=== PATIENT | male | born 1945 | race Caucasian/White ===

== ENCOUNTER 2019-03-01 08:11 | Day surgery (SDC) ==
[2015-11-29 12:20] VITALS: BMI 22.4
[2019-03-01 10:10] VITALS: TEMP 98.5
[2019-03-01] MEDS ORDERED: DIPRIVAN 20 ML VIAL IVP ONE (10:55)
[2019-03-01] MEDS ORDERED: VERSED ONE (10:55)
[2019-03-01 11:39] VITALS: BP 119/70
--- NOTE | 2019-03-02 11:36 | OP ---
INDICATIONS FOR PROCEDURE: 74 year old gentleman presents for colonoscopy exam. He has a remote history of adenomatous polyps with his last colonoscopy 5 years ago being unremarkable. MEDICATIONS: SEE ANESTHESIA NOTES. PROCEDURE: COLONOSCOPY. SNARE POLYPECTOMY. REPORT: The risks, benefits, alternatives and limitations were discussed in detail with the patient. Informed consent was obtained. After adequate sedation was achieved, a digital rectal exam revealed good tone, no masses. The colonoscope was introduced into the rectum and advanced under direct visual guidance to the cecum. The cecum was identified by the appendiceal orifice and IC valve. I then slowly withdrew the scope in circumferential manner and examined the mucosa quite carefully. I looked on the proximal and distal sides of folds and flexures as best as possible. I was able to retroflex the scope in the right colon as well as the left colon to increase visualization. In the Proximal transverse colon there was a diminutive polyp about 3mm in size that I destroyed using the snare. In the middistal transverse colon there was two polyps about 5mm in size slightly raised. Both of these were removed by snare technique. These were retrieved. No other abnormalities noted including on retroflex view of the anal canal. The prep was good. The withdraw time was 12 minutes and 35 seconds. The patient tolerated the procedure well with stable vital signs and pulse oximetry throughout. IMPRESSION: 1. Three polyps removed or destroyed as above RECOMMENDATIONS: 1. High fiber diet 2. Office visit as needed 3. Await pathology results and if everything is benign as expected I suggest a surveillance colonoscopy examination again in 3 years. Sooner if there are signs or symptoms to indicate otherwise. CC: Dr. Abdifatah BOSE
== END 2019-03-01 12:10 | disposition home or self-care (01) ==
LOC: SURG 08:11
PROVIDERS: ATTEND Internal Medicine Gastroenterology
DX: Z86.010 Personal history of colon polyps (principal); D12.3 Benign neoplasm of transverse colon

== ENCOUNTER 2025-03-21 10:47 | Inpatient (IN) ==
[2025-03-21 11:37] LABS: IMMATURE GRANULOCYTE # (AUTO) 0.0 (0.0-1.0); IMMATURE GRANULOCYTE % (AUTO) 0.4 % (0.0-5.0); RDW COEFFICIENT OF VARIATION 16.0 % (11.6-14.8)
[2025-03-21] MEDS: SOLU-MEDROL 125 MG IVP ONE (11:38)
[2025-03-21] MEDS: DUONEB NEB ONE (11:43)
--- NOTE | 2025-03-21 11:47 | DI ---
EXAM: FRONTAL CHEST HISTORY: Shortness of breath IMPRESSION: Compared to 05/18/2023. Cardiomegaly, sternotomy wires and atherosclerotic disease are again noted and stable. Redemonstration of a small right pleural effusion. Probable trace left pleural effusion. Additional density in the bases may represent atelectasis. Cannot exclude pneumonia, correlate cli nically. No pneumothorax or acute bony finding.
[2025-03-21 11:49] LABS: CREATININE 1.04 mg/dL (0.60-1.10)
[2025-03-21 12:13] LABS: ERYTHROCYTE SEDIMENTATION RATE 5 mm/hr (0-15)
[2025-03-21] MEDS: OMNIPAQUE 350 MG/ML 100ML IVP ONE (12:13)
--- NOTE | 2025-03-21 12:54 | CT ---
EXAM: CT OF THE ABDOMEN AND PELVIS WITH CONTRAST COMPARISON: HISTORY: Shortness of breath. TECHNIQUE: Axial CT images were obtained through the abdomen and pelvis with the administration of intravenous contrast. Coronal and sagittal reformatted images were also submitted for interpretation. FINDINGS: Liver: Hepatic steatosis. Correlation with LFTs recommended. Gallbladder: No gallstones. Bile ducts: No intra or extrahepatic biliary ductal dilatation. Pancreas: No lesions. The main pancreatic duct is not dilated. Spleen: The spleen is not enlarged. Adrenal glands: Within normal limits. Kidneys: No hydronephrosis. No renal calculi. Moderate volume loss and decreased enhancement of the right kidney likely secondary to marked narrowing/stenosed right renal artery. Right renal cyst. Ureters: Within normal limits Urinary bladder: Within normal limits Reproductive organs: Prostate measures 4.5 cm. Peritoneum: Small/moderate amount of free fluid in the pelvis. No free air. Gastrointestinal tract: Normal caliber. Small hiatal hernia. Lymph nodes: No lymphadenopathy. Vessels: Marked atherosclerosis in the abdominal aorta. Atherosclerosis with marked narrowing in the celiac trunk, SMA and right renal artery. Marked narrowing of the bilateral superficial femoral arteries. 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 Abdominal wall: Moderate diffuse anasarca. Osseous structures: Degenerative changes. Lower thorax: Moderate/marked cardiomegaly. Moderate bilateral pleural effusions with adjacent atelectasis and/or pneumonia. Sternotomy wires. IMPRESSION: - Moderate volume loss and decreased enhancement of the right kidney likely secondary to marked narrowing/stenosed right renal artery. - Moderate/marked cardiomegaly. Moderate bilateral pleural effusions with adjacent atelectasis and/or pneumonia. Sternotomy wires. - Hepatic steatosis. Correlation with LFTs recommended. - Small/moderate amount of free fluid in the pelvis. No free air. - Extensive atherosclerosis of the aorta and branch vessels. 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 All CT scans are performed using dose optimization techniques as appropriate to the performed exam and include at least one of the following: Automated exposure control, adjustment of the mA and/or kV according to size, and the use of iterative reconstruction technique.
--- NOTE | 2025-03-21 13:07 | ED.PDOC ---
General [facility] ED Provider: Dr. TENISHA PAN MD Chief Complaint: Shortness of Air Stated Complaint: 80-year-old male with history of COPD and congestive heart failure states that over the last week he has felt acute onset of increasing dyspnea which is worse with exertion and has been constant and was moderate in severity until this morning when he felt it was more severe and contacted his daughter to bring him to the emergency department. Daughter states he did appear to be in significant respiratory distress when she initially saw him. He is on 3 L of oxygen at home chronically for his COPD and CHF. He also complains of generalized weakness over the same amount of time and states that it is more difficult to get up out of a chair and he does not feel like he has his normal strength in his arms and his legs that he would normally have. No fever sore throat ear pain chest pain abdominal pain hemoptysis. He has an occasional cough chronically which is unchanged. He states that at times he does feel some dysuria intermittently over the last week. No hematuria. No change in vision or speech. Symptoms have been constant to the present time and worsening with no alleviating factors. He is on Eliquis. He does drink alcohol approximately 2-4 beers a day no drug use. Time Seen by Provider: 03/21/25 10:50 Information Source: Patient Primary Care Provider: SANDY FLORES Nursing and Triage Documentation Reviewed and Agree: Yes Opioid Naive vs. Tolerant Does Patient Take Opioids?: No Is Patient Opioid Naive?: No What is Opioid Naive?: *Opioid Naive implies the patient is not already taking opioids or not chronically receiving opioids on a daily basis. *PRN dosing is not "usually" associated with tolerance. *Patients are at higher risk of over-sedation and aspiration. Is Patient Opioid Tolerant?: No What is Opioid Tolerant?: *Opioid Tolerance implies less than the expected response to an opioid. *Acquired tolerance is defined by the patient taking 60mg of oral morphine daily (or equianalgesic dose of another opioid) for 1 week or more. *Often associated with chronic pain. *May take more than usual dose to achieve desired pain control. Review of Systems Review Of Systems Constitutional: Reports Other (No fever or chills) Ears, Nose, Mouth, Throat: Reports Other (No headache or neck pain) Respiratory: Reports Other (As above) Cardiac: Reports Other (No chest pain palpitations or syncope) GI: Reports Other (No abdominal pain vomiting or melena) : Reports Other (Positive dysuria, no hematuria) Musculoskeletal: Reports Other (No back pain or extremity pain) Neurological: Reports Other (No focal weakness. He feels generally weak in all extremities. No change in vision or speech or confusion.) [facility] Medical History COPD (chronic obstructive pulmonary disease) J44.9 - Chronic obstructive pulmonary disease, unspecified (ICD-10) Hypertension I10 - Essential (primary) hypertension (ICD-10) CHF (congestive heart failure) I50.9 - Heart failure, unspecified (ICD-10) Surgical History H/O heart surgery Z98.890 - Other specified postprocedural states (ICD-10) Physical Exam Physical Exam Appearance: Reports Other (Alert, pleasant elderly male complaining of shortness of breath and generalized weakness, vital signs reviewed) ENT: Reports Ears normal, Nose normal and Oropharynx normal Neck: Supple (Trachea midline, no JVD) Respiratory: Reports Airway patent and Other (Diminished air entry bilaterally, occasional scattered wheeze, no rhonchi, no accessory muscle use ) Cardiovascular: Reports RRR and No murmur GI/: Reports Other (I palpate what I believed to be an enlarged liver in his right upper to mid abdomen which is mildly tender to palpation, remainder of the abdomen is soft and without any other palpable masses and nontender, no hernia) Musculoskeletal: Reports Other (No tenderness to the thoracic or lumbar spine or tenderness swelling deformity to the arms or legs) Neurological: Reports Other (Alert, answering questions appropriately, face is symmetric, equal strength and sensation of all extremities. He is symmetrically weak at the shoulders. He states he has some pain at the shoulders chronically and chronic weakness due to the pain) Interpretation EKG Interpretation EKG Interpretation By: ED Physician Time of EKG #1: 11:26 Rate: Normal Rhythm: Sinus Ectopy: None Welch: Left ST Segment: Other (J-point elevation inferiorly and anteriorly and ST depression laterally with T wave inversions consistent with repolarization abnormality from left bundle branch block pattern and left ventricular hypertrophy.) Interpretation: Normal sinus rhythm with left axis deviation left bundle branch block Radiology Interpretation Radiology Interpretation By: Radiologist Exam Interpreted: CXR (Chest x-ray shows small right pleural effusion similar to previous chest x-ray, lower lung density which has also previously been seen, no edema or pneumothorax) Radiology Interpretation By: Radiologist Exam Interpreted: CT Scan (CT scan of the abdomen/pelvis:IMPRESSION: - Moderate volume loss and decreased enhancement of the right kidney likely secondary to marked narrowing/stenosed right renal artery. - Moderate/marked cardiomegaly. Moderate bilateral pleural effusions with adjacent atelectasis and/or pneumonia. Sternotom) Physician Progress Note Physician Progress Note: Pulse oximetry reading is 97% on 3 L nasal cannula which is what the patient is on at home. He has normal oxygenation on his normal 3 L nasal cannula. monitoring and evaluation advisor shows normal sinus rhythm EKG shows normal sinus rhythm with left axis deviation left bundle branch block pattern left ventricular hypertrophy, left axis deviation, J-point elevation anteriorly and inferiorly and ST depression in laterally and T wave inversion laterally consistent with repolarization abnormality, impression: Normal sinus rhythm with left axis deviation left bundle branch block and repolarization abnormality, personnel monitor and EKG were interpreted by me Radiology studies: I reviewed the radiologist interpretation, CAT scan of the abdomen/pelvis: MPRESSION: - Moderate volume loss and decreased enhancement of the right kidney likely secondary to marked narrowing/stenosed right renal artery. - Moderate/marked cardiomegaly. Moderate bilateral pleural effusions with adjacent atelectasis and/or pneumonia. Sternotomy wires. - Hepatic steatosis. Correlation with LFTs recommended. - Small/moderate amount of free fluid in the pelvis. No free air. - Extensive atherosclerosis of the aorta and branch vessels. 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 Chest x-ray: IMPRESSION: Compared to 05/18/2023. Cardiomegaly, sternotomy wires and atherosclerotic disease are again noted and stable. Redemonstration of a small right pleural effusion. Probable trace left pleural effusion. Additional density in the bases may represent atelectasis. Cannot exclude pneumonia, correlate clinically. No pneumothorax or acute bony finding. Lab workup CBC is normal except for hemoglobin of 11.9 and platelet count of 119,000 CMP is normal except for sodium of 131 glucose of 116 and chloride of 94 proBNP significantly elevated at 14,000 D-dimer elevated at 2121 Troponin negative lipase normal Reexamination at 2 PM. Patient states that he is feeling improved from earlier but still has some wheezing on exam and mild tachypnea at rest. Patient also needs to get a CTA of his chest for PE but unfortunately already did receive 1 IV contrast load. I spoke with the nurse practitioner hospitalist and we discussed keeping the patient in observation until tomorrow. I did give the patient 40 mg of IV Lasix for congestive heart failure and he will be kept in observation for more breathing treatments and steroids and diuretics and will undergo CTA of his chest tomorrow to exclude the possibility of PE. He is already on Eliquis and did take a dose this morning prior to coming to the hospital as well as all of his other morning medications Course Course 03/21/25 11:10 03/21/25 11:10 Orders, Labs, Meds: Lab Review 03/21/25 11:10 WBC 7.03 RBC 3.23 L Hgb 11.9 L Hct 36.3 L MCV 112.4 H MCH 36.8 H MCHC 32.8 RDW Coeff of Regino 16.0 H Plt Count 113 L Immature Gran % (Auto) 0.4 Neut % (Auto) 76.9 H Lymph % (Auto) 10.0 Hern[place] % (Auto) 10.7 H Eos % (Auto) 1.1 Baso % (Auto) 0.9 Neut # (Auto) 5.4 Lymph # (Auto) 0.7 [place] # (Auto) 0.8 Eos # (Auto) 0.1 Baso # (Auto) 0.1 Immature Gran # (Auto) 0.0 ESR 5 Sodium 131.0 L Potassium 4.25 Chloride 93.7 L Carbon Dioxide 26.4 Anion Gap 15.15 BUN 17.5 Creatinine 1.04 Estimated GFR (MDRD) 68.00 BUN/Creatinine Ratio 16.82 Glucose 115.9 H Calcium 8.50 Total Bilirubin 1.18 AST 28.3 ALT 13.7 Alkaline Phosphatase 80.1 Troponin I 0.017 NT-Pro-B Natriuret Pep 71530 H Total Protein 6.77 Albumin 4.06 Globulin 2.71 Albumin/Globulin Ratio 1.49 Lipase 32.4 D-Dimer 2121.64 H Orders Category Date Time Status EKG-(ED ONLY) Stat CARDIO 03/21/25 11:21 Completed CONTINUOUS PULSE OX (NURSING) PULSEOX CARE 03/21/25 11:21 Active NPO REMINDER: IMAGING ONCE CARE 03/21/25 11:25 Completed ED MANUAL CONTROL AUGER PRESS OPERATOR APPLIED .ONCE EMERGENCY 03/21/25 11:22 Active CBC W/ AUTO DIFF Stat LAB 03/21/25 11:10 Completed COMPREHENSIVE METABOLIC PANEL Stat LAB 03/21/25 11:10 Completed D-DIMER Stat LAB 03/21/25 11:10 Completed ESR Stat LAB 03/21/25 11:10 Completed LIPASE Stat LAB 03/21/25 11:10 Completed NT-PROBNP(ED) Stat LAB 03/21/25 11:10 Completed TROPONIN I Stat LAB 03/21/25 11:10 Completed URINALYSIS C & S IF INDICATED Stat LAB 03/21/25 11:21 Uncollected Furosemide [Lasix] Meds 03/21/25 13:20 Stat 40 mg IVP ONCE STA Iohexol [Omnipaque 350 mg/ml 100Ml] Meds 03/21/25 11:59 Discontinued 100 ml IVP ONCE ONE Ipratropium/Albuterol Neb [Duoneb] Meds 03/21/25 11:21 Discontinued 3 ml NEB ONCE ONE Methylprednisolone Sod Succ/Pf [Solu-Medrol 125 mg] Meds 03/21/25 11:21 Discontinued 125 mg IVP ONCE ONE CHEST, 1V AP ONLY Stat RADS 03/21/25 11:[address] ABDOMEN/PELVIS W CONTRAST Stat RADS 03/21/25 11:25 Completed Medications Generic Name Dose Route Start Last Admin Trade Name Freq PRN Reason Stop Dose Admin Furosemide 40 mg 03/21/25 13:20 Furosemide Inj 40 Mg/4 Ml Vial IVP 03/21/25 13:21 ONCE STA Discontinued Medications Generic Name Dose Route Start Last Admin Trade Name Freq PRN Reason Stop Dose Admin Albuterol/Ipratropium 3 ml 03/21/25 11:21 03/21/25 11:43 Ipratropium/Albuterol Vial.Neb NEB 03/21/25 11:22 3 ml ONCE ONE Administration Iohexol 100 ml 03/21/25 11:59 03/21/25 12:13 Iohexol 350 Mg/Ml 100ml IVP 03/21/25 12:00 100 ml ONCE ONE Administration Methylprednisolone Sodium Succinate 125 mg 03/21/25 11:21 03/21/25 11:38 Methylprednisolone Sod Succ/Pf 125 Mg/2 Ml Vial IVP 03/21/25 11:22 125 mg ONCE ONE Administration Vital Signs: Temp Pulse Resp BP Pulse Ox 03/21/25 10:50 98.0 F 70 20 146/90 H 97 Discharge Plan Discharge Patient Disposition: PLACED OBSERVATION Discharge Problem: Asthma exacerbation in COPD, Congestive heart failure, Generalized weakness Did you review [place] [employer] ADMINISTRATOR for ALL controlled substances?: Not Applicable ED Provider: TENISHA PAN Condition: Good
[2025-03-21] MEDS: LASIX IVP STA (13:25)
[2025-03-21 14:03] LABS: SARS COV-2 RNA RAPID NAAT NEGATIVE (NEGATIVE)
[2025-03-21 14:33] LABS: GLUCOSE, URINE (UA) Negative (NEGATIVE); LEUKOCYTE ESTERASE ,URINE Negative (NEGATIVE); URINE, BLOOD Negative (NEGATIVE)
[2025-03-21] MEDS ORDERED: DUONEB NEB PRN (14:44)
--- NOTE | 2025-03-21 14:53 | PCM ---
Date of Service Date Seen by Provider: 03/21/25 Time Seen by Provider: 15:00 Admit Day/Time Admission Date: 03/21/25 Admission Time: 14:00 Reason for Admission Chief Complaint: COPD, CHF Hospital Provider Hospital Provider: ALIX WHITLOCK, [facility] Primary Care Physician Primary Care Physician: SANDY FLORES History of Present Illness History of Present Illness: 80 yo male with pmh of COPD on 3L, Combined HF, HTN, Afib and Aortic insufficiency presented to the ER with complaints of shortness of breath. States he has had worsening SOB over the past 3 months but even worse than normal the past week. States he is weak and feels he is swelling in his legs. Denies any fever or chills, does report body aches. Denies cough or chest pain. States he normally weighs 160 and is 169.2 today. BNP found to be 14,000. Ct abd pelv showing anasarca and pleural effusions. Upon exam, patient is using abdominal muscles to breathe and states he can't walk without getting SOB. Admitted to med/surg inpatient. Case Discussed With Case Discussed With: Patient's case was discussed with the ER Physicians, Dr. Louie [facility] Medical History COPD (chronic obstructive pulmonary disease) J44.9 - Chronic obstructive pulmonary disease, unspecified (ICD-10) Hypertension I10 - Essential (primary) hypertension (ICD-10) CHF (congestive heart failure) I50.9 - Heart failure, unspecified (ICD-10) Surgical History H/O heart surgery Z98.890 - Other specified postprocedural states (ICD-10) Family History Other No known health problems Social History Smoking and tobacco status: Former smoker Allergies Allergies Allergy/AdvReac Type Severity Reaction Status Date / Time shellfish derived AdvReac Intermediate Difficulty Verified 03/21/25 10:55 Breathing hydrocodone (From Lortab) AdvReac Vomiting Verified 03/21/25 10:55 Current Medications Home Medications Acetaminophen (Acetaminophen 325 Mg Tablet) 650 mg PO Q4H PRN PRN Reason: Mild Pain Albuterol/Ipratropium (Ipratropium/Albuterol Vial.Neb) 3 ml NEB RTQ4H PRN PRN Reason: Wheezing Folic Acid (Folic Acid 1 Mg Tablet) 1 mg PO DAILY SINDY Furosemide (Furosemide Inj 40 Mg/4 Ml Vial) 40 mg IVP Q8HR SINDY Thiamine HCl (Vitamin B-1 100 Mg Tablet) 100 mg PO DAILY SINDY metoprolol succinate 25 mg tablet,extended release 24 hr 50 mg PO BID 12/06/13 [History Confirmed 03/21/25] sildenafil 25 mg tablet (Viagra) 25 mg PO WEEKLY PRN ED 11/29/15 [History Confirmed 03/21/25] apixaban 5 mg tablet (Eliquis) 2.5 mg PO BID 07/18/22 [History Confirmed 03/21/25] memantine 10 mg tablet 10 mg PO BID 04/28/23 [History Confirmed 03/21/25] ranolazine 500 mg tablet,extended release,12 hr 1,000 mg PO BID 04/28/23 [Hist ory Confirmed 03/21/25] spironolactone 25 mg tablet 25 mg PO QAM 04/28/23 [History Confirmed 03/21/25] tamsulosin 0.4 mg capsule 0.4 mg PO DAILY 04/28/23 [History Confirmed 03/21/25] trazodone 100 mg tablet 100 mg PO BEDTIME 04/28/23 [History Confirmed 03/21/25] albuterol sulfate 90 mcg/actuation aerosol inhaler 2 inh inhalation Q8H PRN shortness of breath or wheezing 05/11/24 [History Confirmed 03/21/25] atorvastatin 80 mg tablet 80 mg PO DAILY 05/11/24 [History Confirmed 03/21/25] azelastine 137 mcg-fluticasone 50 mcg/spray nasal spray 1 spray intranasal DAILY 05/11/24 [History Confirmed 03/21/25] bacitracin-polymyxin B 500 unit-10,000 unit/gram eye ointment 1 applic BOTHEYES DAILY 05/11/24 [History Confirmed 03/21/25] empagliflozin 10 mg tablet (Jardiance) 10 mg PO DAILY 05/11/24 [History Confirmed 03/21/25] fluticasone 100 mcg-salmeterol 50 mcg/dose blistr powdr for inhalation (Advair Diskus) 1 inh inhalation BID PRN shortness of breath or wheezing 05/11/24 [History Confirmed 03/21/25] furosemide 40 mg tablet 40 mg PO DAILY PRN edema 05/11/24 [History Confirmed 03/21/25] lidocaine 5 % topical patch (Lidoderm) 1 patch topical DAILY PRN pain 05/11/24 [History Confirmed 03/21/25] pantoprazole 40 mg tablet,delayed release (Protonix) 40 mg PO DAILY 05/11/24 [History Confirmed 03/21/25] sacubitril 24 mg-valsartan 26 mg tablet (Entresto) 1 tab PO DAILY 05/11/24 [History Confirmed 03/21/25] isosorbide mononitrate 30 mg tablet,extended release 24 hr 30 mg PO QDAY 07/22/24 [History Confirmed 03/21/25] loratadine 10 mg tablet 10 mg PO QDAY 07/22/24 [History Confirmed 03/21/25] bumetanide 0.5 mg tablet 0.5 mg PO DAILY 03/05/25 [History Confirmed 03/21/25] chlorhexidine gluconate 4 % topical liquid (Hibiclens) 1 applic topical BID #236 mL 03/05/25 [Rx Confirmed 03/21/25] mirtazapine 7.5 mg tablet 7.5 mg PO BEDTIME 03/05/25 [History Confirmed 03/21/25] fluticasone propionate 50 mcg/actuation nasal spray,suspension 2 spray intranasal DAILY 03/21/25 [History Confirmed 03/21/25] testosterone 81 mg topical QAM 03/21/25 [History Confirmed 03/21/25] Opioid Naive vs. Tolerant Does Patient Take Opioids?: No Is Patient Opioid Naive?: Yes What is Opioid Naive?: *Opioid Naive implies the patient is not already taking opioids or not chronically receiving opioids on a daily basis. *PRN dosing is not "usually" associated with tolerance. *Patients are at higher risk of over-sedation and aspiration. Is Patient Opioid Tolerant?: No What is Opioid Tolerant?: *Opioid Tolerance implies less than the expected response to an opioid. *Acquired tolerance is defined by the patient taking 60mg of oral morphine daily (or equianalgesic dose of another opioid) for 1 week or more. *Often associated with chronic pain. *May take more than usual dose to achieve desired pain control. Review of Systems Constitutional: Reports No symptoms, Weakness and Other (body aches); Denies Fever Head: Reports Normocephalic and Atraumatic Eyes: Reports No symptoms Ears: Reports No symptoms Nose: Reports No symptoms Mouth: Reports No symptoms Throat: Reports No symptoms Cardiovascular: Reports No symptoms Respiratory: Reports Shortness of air; Denies Cough Gastrointestinal: Reports No symptoms Genitourinary: Reports No Symptoms Musculoskeletal: Reports No symptoms Endocrine: Reports No symptoms Hematology: Reports No symptoms Immunology: Reports No symptoms Neurological: Reports No symptoms Psychiatric: Reports No symptoms Physical examination Most Recent Vital Signs: Most Recent Vital Signs Temperature 98.0 F 03/21/25 10:50 Temperature Source Temporal Artery Scan 03/21/25 10:50 Pulse Rate 70 03/21/25 10:50 Respiratory Rate 20 03/21/25 10:50 Blood Pressure 146/90 H 03/21/25 10:50 O2 Sat by Pulse Oximetry 97 03/21/25 10:50 Height 6 ft 03/21/25 10:50 Weight 72.575 kg 03/21/25 10:50 Appearance: Positive No Apparent Distress and Alert and Oriented x3 Skin: Positive Warm and Good Color HEENT: Positive Normocephalic and PERRLA Neck: Positive Supple and Midline Trachea Chest/Lungs: Positive Symmetrical With Equal Breath Sounds and Clear to Auscultation Bilaterally (severely diminished) Heart: Positive Pulses Normal and Murmur GI/: Positive Soft, Nontender, Bowel Sounds Normal and Other (distended with fluid) Musculoskeletal: Positive Not Examined Extremities: Positive Edema (+2 bilateral lower extremities), Intact Peripheral Pulses, Stable Joints Without Laxity and Good ROM in All Joints Neurological: Positive Sensation Intact, Motor intact, Reflexes Intact, Alert, Oriented and Muscle Strength 5/5 in Upper and Lower Extremities Bilaterally Labs This Visit Labs This Visit: Labs This Visit 03/21/25 03/21/25 03/21/25 11:10 13:28 14:20 WBC 7.03 RBC 3.23 L Hgb 11.9 L Hct 36.3 L MCV 112.4 H MCH 36.8 H MCHC 32.8 RDW Coeff of Regino 16.0 H Plt Count 113 L Immature Gran % (Auto) 0.4 Neut % (Auto) 76.9 H Lymph % (Auto) 10.0 Cloud % (Auto) 10.7 H Eos % (Auto) 1.1 Baso % (Auto) 0.9 Neut # (Auto) 5.4 Lymph # (Auto) 0.7 Cloud # (Auto) 0.8 Eos # (Auto) 0.1 Baso # (Auto) 0.1 Immature Gran # (Auto) 0.0 ESR 5 Sodium 131.0 L Potassium 4.25 Chloride 93.7 L Carbon Dioxide 26.4 Anion Gap 15.15 BUN 17.5 Creatinine 1.04 Estimated GFR (MDRD) 68.00 BUN/Creatinine Ratio 16.82 Glucose 115.9 H Calcium 8.50 Total Bilirubin 1.18 AST 28.3 ALT 13.7 Alkaline Phosphatase 80.1 Troponin I 0.017 NT-Pro-B Natriuret Pep 64653 H Total Protein 6.77 Albumin 4.06 Globulin 2.71 Albumin/Globulin Ratio 1.49 Lipase 32.4 D-Dimer 2121.64 H Urine Color Yellow Urine Clarity Clear Urine pH 6.0 Ur Specific Kenner 1.010 Urine Protein Negative Urine Glucose (UA) Negative Urine Ketones Negative Urine Blood Negative Urine Nitrite Negative Urine Bilirubin Negative Urine Urobilinogen 0.2 Ur Leukocyte Esterase Negative SARS CoV-2 RNA Rapid KARAN Negative Imaging Imaging: EXAM: FRONTAL CHEST HISTORY: Shortness of breath IMPRESSION: Compared to 05/18/2023. Cardiomegaly, sternotomy wires and atherosclerotic disease are again noted and stable. Redemonstration of a small right pleural effusion. Probable trace left pleural effusion. Additional density in the bases may represent atelectasis. Cannot exclude pneumonia, correlate clinically. No pneumothorax or acute bony finding. EXAM: CT OF THE ABDOMEN AND PELVIS WITH CONTRAST FINDINGS: Liver: Hepatic steatosis. Correlation with LFTs recommended. Gallbladder: No gallstones. Bile ducts: No intra or extrahepatic biliary ductal dilatation. Pancreas: No lesions. The main pancreatic duct is not dilated. Spleen: The spleen is not enlarged. Adrenal glands: Within normal limits. Kidneys: No hydronephrosis. No renal calculi. Moderate volume loss and decreased enhancement of the right kidney likely secondary to marked narrowing/stenosed right renal artery. Right renal cyst. Ureters: Within normal limits Urinary bladder: Within normal limits Reproductive organs: Prostate measures 4.5 cm. Peritoneum: Small/moderate amount of free fluid in the pelvis. No free air. Gastrointestinal tract: Normal caliber. Small hiatal hernia. Lymph nodes: No lymphadenopathy. Vessels: Marked atherosclerosis in the abdominal aorta. Atherosclerosis with marked narrowing in the celiac trunk, SMA and right renal artery. Marked narrowing of the bilateral superficial femoral arteries. 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 Abdominal wall: Moderate diffuse anasarca. Osseous structures: Degenerative changes. Lower thorax: Moderate/marked cardiomegaly. Moderate bilateral pleural effusions with adjacent atelectasis and/or pneumonia. Sternotomy wires. IMPRESSION: - Moderate volume loss and decreased enhancement of the right kidney likely secondary to marked narrowing/stenosed right renal artery. - Moderate/marked cardiomegaly. Moderate bilateral pleural effusions with adjacent atelectasis and/or pneumonia. Sternotomy wires. - Hepatic steatosis. Correlation with LFTs recommended. - Small/moderate amount of free fluid in the pelvis. No free air. - Extensive atherosclerosis of the aorta and branch vessels. 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 Review Statement Review Statement: I have independently reviewed and interpreted the labs/EKGs/imaging that were ordered by the ER provider. I have reviewed all outside records that are available currently in our EMR including imaging/notes/labs from previous visits. Plan Plan: 1. Acute on Chronic Combined HF exacerbation with pleural effusions and anasarca - lasix 40 mg Q8H, I&O, daily weight, 1800 fluid restriction, last echo 06/19/24 EF 41-45%, follows with Cardiology at [facility], [place] and scheduled for next echo 06/2025. 2. Elevated D-dimer - CT with contrast completed for abd/pelv and did not get PE study, must wait at least 24 hours prior to giving more contrast, will complete tomorrow to r/o PE 3. Chronic Hyponatremia - likely due to alcohol abuse, restricting fluids, monitor 4. Afib - chronic, not in RVR, continue home medications 5. COPD - on home 3L, continue home medications 6. HTN - chronic, continue home medications DVT Prophylaxis: Eliquis Time Spent: Greater than 80 minutes spent with patient, 50% of the time spent with this patient was devoted to counseling and coordination of care. [facility] minutes spent discussing advance care planning. Disposition: Admit to: Med/Surg Inpatient Discussed Plan of Care with Dr. Heidi Ackerman. Medications Medication Orders: Medications Ordered Category Date Time Status Acetaminophen [Tylenol] Meds 03/21/25 14:41 Ordered 650 mg PO Q4H PRN Folic Acid Meds 03/22/25 16:00 Ordered 1 mg PO DAILY Furosemide [Lasix] Meds 03/21/25 21:00 Ordered 40 mg IVP Q8HR Ipratropium/Albuterol Neb [Duoneb] Meds 03/21/25 14:44 Ordered 3 ml NEB RTQ4H PRN Vitamin B-1 [Thiamine] Meds 03/22/25 16:00 Ordered 100 mg PO DAILY
[2025-03-21 15:13] VITALS: BMI 23.0
[2025-03-21] MEDS: TYLENOL PO PRN (17:50)
[2025-03-21] MEDS ORDERED: VENTOLIN HFA IH PRN (18:01)
[2025-03-21] MEDS: LASIX IVP SCH (20:25)
[2025-03-21] MEDS: FLOMAX PO SCH (20:29)
[2025-03-21] MEDS: DESYREL PO SCH (20:29)
[2025-03-21] MEDS: RANEXA PO SCH (20:29)
[2025-03-21] MEDS: LIPITOR PO SCH (20:30)
[2025-03-21] MEDS: PROTONIX PO SCH (20:30)
[2025-03-21] MEDS: REMERON PO SCH (20:30)
[2025-03-21] MEDS: ENTRESTO 24 MG-26 MG TABLET PO SCH (20:30)
[2025-03-21] MEDS: NAMENDA PO SCH (20:30)
[2025-03-21] MEDS: SYMBICORT 160-4.5 MCG INHALER IH SCH (20:31)
[2025-03-21] MEDS: MELATONIN PO PRN (20:31)
[2025-03-22 05:13] LABS: IMMATURE GRANULOCYTE # (AUTO) 0.0 (0.0-1.0); IMMATURE GRANULOCYTE % (AUTO) 1.0 % (0.0-5.0); RDW COEFFICIENT OF VARIATION 15.9 % (11.6-14.8)
[2025-03-22 05:26] LABS: CREATININE 1.1 mg/dL (0.60-1.10)
[2025-03-22] MEDS ORDERED: POLYSPORIN 0.9 GM PACKET TP SCH ×2 (09:00)
[2025-03-22] MEDS ORDERED: FOLIC ACID PO SCH (09:00)
[2025-03-22] MEDS ORDERED: THIAMINE PO SCH (09:00)
--- NOTE | 2025-03-22 11:08 | DCSUM ---
Admission Date Admission Date: 03/21/25 Discharge Date Discharge Date: 03/23/25 Admission Diagnosis Admission Diagnosis: 1. 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 Elevated D-dimer 3. Chronic Hyponatremia 4. Afib 5. COPD 6. HTN Discharge Diagnosis Discharge Diagnosis: 1. 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 Elevated D-dimer - CTA 3. Chronic Hyponatremia - stable 4. Afib - chronic, stable 5. COPD - chronic, stable 6. HTN - chronic, stable Hospital Provider Hospital [facility] Primary Care Physician Primary Care Physician: SANDY FLORES Summary of History and Physical Summary of History and Physical: 80 yo male with pmh of COPD on 3L, Combined HF, HTN, Afib and Aortic insufficiency presented to the ER with complaints of shortness of breath. States he has had worsening SOB over the past 3 months but even worse than normal the past week. States he is weak and feels he is swelling in his legs. Denies any fever or chills, does report body aches. Denies cough or chest pain. States he normally weighs 160 and is 169.2 today. BNP found to be 14,000. Ct abd pelv showing anasarca and pleural effusions. Upon exam, patient is using abdominal muscles to breathe and states he can't walk without getting SOB. Admitted to med/surg inpatient. Hospital Course Subjective: During stay, patient was treated for Acute on Chronic Combined HF exacerbation with pleural effusions and anasarca with lasix 40 mg Q8H, I&O, daily weight, 1800 fluid restriction, last echo 06/19/24 EF 41-45%, follows with Cardiology at [facility] and scheduled for next echo 06/2025. Diuresed well. Down 3 kilos. Feeling much better this am. Edema now trace to BLE and abdomen. Found to have elevated D-dimer in ER but CT with contrast was completed for abd/pelv and did not get PE study, must wait at least 24 hours prior to giving more contrast. CTA completed today and showed There is at least a small volume simple left pleural effusion. There is a moderate volume loculated right pleural effusion. These effusions are new since the prior study. Mild consolidations adjacent to the pleural effusions probably represent atelectasis. Discussed need for thoracentesis to drain effusion to patient and he continued to request discharge and to follow-up for outpatient procedure to be done. Contacted [facility] Pulmonology - follows with Dr. Holland. Discussed case with him and states patient can follow-up in May and repeat imaging before need for draining of effusion. Sodium remaining at chronic low level. Renal function mildly increased due to diuretic use. VSS. Remained on home oxygen at 3L. Previously taking bumex every other day. Feel patient needs this daily due to decline over the last 2 weeks. PCP may adjust back to every other day if needed. New rx sent for daily. Appearance: Pleasant, No Apparent Distress and Alert HEENT: MMM and Supple CVS: No Murmur Abdomen: Soft Respiratory: Other (mild crackles R lower lung) Extremities: Other (trace pitting edema) Vital Signs: Most Recent Vital Signs Temperature 97.7 F 03/22/25 09:39 Temperature Source Oral 03/22/25 09:39 Temperature Source Temporal Artery Scan 03/21/25 10:50 Pulse Rate 72 03/22/25 09:39 Respiratory Rate 18 03/22/25 09:39 Blood Pressure 106/61 03/22/25 09:39 Blood Pressure Mean 76 03/22/25 09:39 Blood Pressure Left Arm 128/91 03/21/25 14:41 Blood Pressure Location Left Arm 03/22/25 09:39 Blood Pressure Position Supine 03/22/25 09:39 O2 Sat by Pulse Oximetry 99 03/22/25 10:00 Oxygen Delivery Method Nasal Cannula 03/22/25 10:00 Oxygen Flow Rate 3 03/22/25 10:00 Height 6 ft 03/21/25 14:41 Weight 73.9 kg 03/22/25 05:43 Telemetry Type Remote Telemetry 03/22/25 07:00 Telemetry Monitoring Continues 03/22/25 07:00 Telemetry Heart Rate 74 03/22/25 07:00 EKG FL Interval 0.16 03/22/25 07:00 EKG QRS Interval 0.14 H 03/22/25 07:00 Telemetry Strip Reading SR with BBB 03/22/25 07:00 Pulse Oximetry Type Remote Telemetry 03/22/25 07:00 Pulse Oximetry Monitoring Continues 03/22/25 07:00 Imaging: EXAM: FRONTAL CHEST HISTORY: Shortness of breath IMPRESSION: Compared to 05/18/2023. Cardiomegaly, sternotomy wires and atherosclerotic disease are again noted and stable. Redemonstration of a small right pleural effusion. Probable trace left pleural effusion. Additional density in the bases may represent atelectasis. Cannot exclude pneumonia, correlate clinically. No pneumothorax or acute bony finding. EXAM: CT OF THE ABDOMEN AND PELVIS WITH CONTRAST FINDINGS: Liver: Hepatic steatosis. Correlation with LFTs recommended. Gallbladder: No gallstones. Bile ducts: No intra or extrahepatic biliary ductal dilatation. Pancreas: No lesions. The main pancreatic duct is not dilated. Spleen: The spleen is not enlarged. Adrenal glands: Within normal limits. Kidneys: No hydronephrosis. No renal calculi. Moderate volume loss and decreased enhancement of the right kidney likely secondary to marked narrowing/stenosed right renal artery. Right renal cyst. Ureters: Within normal limits Urinary bladder: Within normal limits Reproductive organs: Prostate measures 4.5 cm. Peritoneum: Small/moderate amount of free fluid in the pelvis. No free air. Gastrointestinal tract: Normal caliber. Small hiatal hernia. Lymph nodes: No lymphadenopathy. Vessels: Marked atherosclerosis in the abdominal aorta. Atherosclerosis with marked narrowing in the celiac trunk, SMA and right renal artery. Marked narrowing of the bilateral superficial femoral arteries. 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 Abdominal wall: Moderate diffuse anasarca. Osseous structures: Degenerative changes. Lower thorax: Moderate/marked cardiomegaly. Moderate bilateral pleural effusions with adjacent atelectasis and/or pneumonia. Sternotomy wires. IMPRESSION: - Moderate volume loss and decreased enhancement of the right kidney likely secondary to marked narrowing/stenosed right renal artery. - Moderate/marked cardiomegaly. Moderate bilateral pleural effusions with adjacent atelectasis and/or pneumonia. Sternotomy wires. - Hepatic steatosis. Correlation with LFTs recommended. - Small/moderate amount of free fluid in the pelvis. No free air. - Extensive atherosclerosis of the aorta and branch vessels. 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 EXAM: CT ANGIOGRAPHY CHEST (PE PROTOCOL) HISTORY: Elevated D-dimer, shortness of breath TECHNIQUE: CTA chest with intravenous contrast. PE protocol. Multiplanar images were provided with MIP images and 3-D reconstructions. COMPARISON: 05/11/2024 FINDINGS: No pulmonary arterial thromboembolism. There is moderate atherosclerotic disease. The ascending thoracic aortic caliber is mildly aneurysmal at 3.7 cm. Coronary artery calcifications are present. Markedly enlarged heart size is again noted. No pericardial effusion. There is at least a small volume simple left pleural effusion. There is a moderate volume loculated right pleural effusion. Pulmonary vascular congestion is present. Subtle interstitial edema is suggested. Mild consolidations adjacent to the pleural effusions probably represent atelectasis, correlate clinically for less likely pneumonia. No pneumothorax. Bones reveal no acute finding. Prior sternotomy. - - - - - IMPRESSION: 1. No PE. 2. There is moderate atherosclerotic disease. The ascending thoracic aortic caliber is mildly aneurysmal at 3.7 cm. Coronary artery calcifications are present. 3. Markedly enlarged heart size is again noted. 4. There is at least a small volume simple left pleural effusion. There is a moderate volume loculated right pleural effusion. These effusions are new since the prior study. Mild consolidations adjacent to the pleural effusions probably represent atelectasis. 5. Pulmonary vascular congestion is present. Subtle interstitial edema. Lab Results Last 24 Hours: 03/22/25 03/21/25 03/21/25 05:11 14:20 13:28 WBC 2.96 L RBC 3.03 L Hgb 10.8 L Hct 33.3 L MCV 109.9 H MCH 35.6 H MCHC 32.4 RDW Coeff of Regino 15.9 H Plt Count 97 L Immature Gran % (Auto) 1.0 Neut % (Auto) 85.2 H Lymph % (Auto) 10.1 [place] % (Auto) 3.4 Eos % (Auto) 0.3 Baso % (Auto) 0.0 Neut # (Auto) 2.5 Lymph # (Auto) 0.3 L [place] # (Auto) 0.1 L Eos # (Auto) 0.0 Baso # (Auto) 0.0 Immature Gran # (Auto) 0.0 ESR Sodium 131.5 L Potassium 3.56 Chloride 93.2 L Carbon Dioxide 29.7 Anion Gap 12.16 BUN 18.1 Creatinine 1.10 Estimated GFR (MDRD) 64.00 BUN/Creatinine Ratio 16.45 Glucose 145.2 H Calcium 8.28 L Total Bilirubin 1.22 AST 31.8 ALT 13.3 Alkaline Phosphatase 77.2 Troponin I NT-Pro-B Natriuret Pep Total Protein 5.64 L Albumin 3.19 L Globulin 2.45 Albumin/Globulin Ratio 1.30 Lipase Procalcitonin D-Dimer Urine Color Yellow Urine Clarity Clear Urine pH 6.0 Ur Specific [place] 1.010 Urine Protein Negative Urine Glucose (UA) Negative Urine Ketones Negative Urine Blood Negative Urine Nitrite Negative Urine Bilirubin Negative Urine Urobilinogen 0.2 Ur Leukocyte Esterase Negative SARS CoV-2 RNA Rapid KARAN Negative 03/21/25 03/21/25 12:00 11:10 WBC 7.03 RBC 3.23 L Hgb 11.9 L Hct 36.3 L MCV 112.4 H MCH 36.8 H MCHC 32.8 RDW Coeff of Regino 16.0 H Plt Count 113 L Immature Gran % (Auto) 0.4 Neut % (Auto) 76.9 H Lymph % (Auto) 10.0 [place] % (Auto) 10.7 H Eos % (Auto) 1.1 Baso % (Auto) 0.9 Neut # (Auto) 5.4 Lymph # (Auto) 0.7 [place] # (Auto) 0.8 Eos # (Auto) 0.1 Baso # (Auto) 0.1 Immature Gran # (Auto) 0.0 ESR 5 Sodium 131.0 L Potassium 4.25 Chloride 93.7 L Carbon Dioxide 26.4 Anion Gap 15.15 BUN 17.5 Creatinine 1.04 Estimated GFR (MDRD) 68.00 BUN/Creatinine Ratio 16.82 Glucose 115.9 H Calcium 8.50 Total Bilirubin 1.18 AST 28.3 ALT 13.7 Alkaline Phosphatase 80.1 Troponin I 0.017 NT-Pro-B Natriuret Pep 89745 H Total Protein 6.77 Albumin 4.06 Globulin 2.71 Albumin/Globulin Ratio 1.49 Lipase 32.4 Procalcitonin < 0.05 D-Dimer 2121.64 H Urine Color Urine Clarity Urine pH Ur Specific [place] Urine Protein Urine Glucose (UA) Urine Ketones Urine Blood Urine Nitrite Urine Bilirubin Urine Urobilinogen Ur Leukocyte Esterase SARS CoV-2 RNA Rapid KARAN Discharge Instructions Discharge Planning: Discharge Planning > 40 minutes If patient is discharged with left ventricular systolic dysfunction: yes, previously diagnosed Discharged with a beta karen? already taking Discharged with an gaviota/arb? already taking Discharge Medications: Medications at Discharge (Home Meds & RX) metoprolol succinate 25 mg tablet,extended release 24 hr 12.5 mg PO DAILY 12/06/13 sildenafil 25 mg tablet (Viagra) 25 mg PO WEEKLY PRN ED 11/29/15 memantine 10 mg tablet 10 mg PO BID 04/28/23 tamsulosin 0.4 mg capsule 0.8 mg PO BEDTIME 04/28/23 trazodone 100 mg tablet 100 mg PO BEDTIME 04/28/23 albuterol sulfate 90 mcg/actuation aerosol inhaler 2 inh inhalation Q4H PRN shortness of breath or wheezing 05/11/24 atorvastatin 80 mg tablet 80 mg PO BEDTIME 05/11/24 bacitracin-polymyxin B 500 unit-10,000 unit/gram eye ointment 1 applic BOTHEYES DAILY 05/11/24 empagliflozin 10 mg tablet (Jardiance) 10 mg PO DAILY 05/11/24 furosemide 40 mg tablet 40 mg PO DAILY PRN edema 05/11/24 pantoprazole 40 mg tablet,delayed release (Protonix) 40 mg PO BID 05/11/24 sacubitril 24 mg-valsartan 26 mg tablet (Entresto) 1 tab PO BID 05/11/24 loratadine 10 mg tablet 10 mg PO QDAY 07/22/24 mirtazapine 7.5 mg tablet 7.5 mg PO BEDTIME 03/05/25 aspirin 81 mg tablet 81 mg PO DAILY 03/21/25 fluticasone 250 mcg-salmeterol 50 mcg/dose blistr powdr for inhalation 1 inh inhalation BID 03/21/25 fluticasone propionate 50 mcg/actuation nasal spray,suspension 2 spray intranasal DAILY 03/21/25 mecobalamin (vitamin B12) 1,000 mcg chewable tablet 1,000 mcg PO DAILY 03/21/25 multivitamin 1 tab PO DAILY 03/21/25 ranolazine 1,000 mg tablet,extended release,12 hr 1,000 mg PO BID 03/21/25 tamsulosin 0.4 mg capsule 0.4 mg PO DAILY 03/21/25 testosterone 81 mg topical DAILY 03/21/25 bumetanide 0.5 mg tablet 0.5 mg PO DAILY #30 tabs 03/22/25 Discharge Plan Discharge Discharge Orders: Discharge Patient (ONCE); Ordered 03/23/25 Ordered By: EDYTA MENDOZA Activity Restrictions/Additional Instructions: Diagnosis: Congestive Heart Failure Exacerbation Diet: 2L fluid restriction, regular Activity: as tolerated, PT/OT Medications: [facility] - Fabiola * Bumex 0.5mg - take daily Follow-up with primary care provider and pulmonary. Instructions: Heart Failure (GEN) Care Plan Goals: Problem: Fluid Volume Excess Goal: Maintain adequate fluid volume Instructions: Maintain optimal head of bed placement Monitor respiratory status Monitor for edema Monitor hydration status Patient Disposition: HOME WITH FAMILY CARE Prescriptions: New bumetanide 0.5 mg tablet 0.5 mg PO DAILY Qty: 30 0RF Continued metoprolol succinate 25 MG tablet extended release 24 hr 12.5 mg PO DAILY Rx Instructions: For 30 days. sildenafil [Viagra] 25 MG tablet 25 mg PO WEEKLY PRN (Reason: ED) furosemide 40 mg tablet 40 mg PO DAILY PRN (Reason: edema) atorvastatin 80 mg tablet 80 mg PO BEDTIME bacitracin-polymyxin B 500-10,000 unit/gram ointment 1 applic BOTHEYES DAILY Entresto 24-26 mg tablet 1 tab PO BID Jardiance 10 mg tablet 10 mg PO DAILY pantoprazole [Protonix] 40 mg tablet,delayed release (DR/EC) 40 mg PO BID Patient Comments: Before Meals. albuterol sulfate 90 mcg/actuation HFA aerosol inhaler 2 inh inhalation Q4H PRN (Reason: shortness of breath or wheezing) mirtazapine 7.5 mg tablet 7.5 mg PO BEDTIME memantine 10 mg tablet 10 mg PO BID tamsulosin 0.4 mg capsule 0.8 mg PO BEDTIME Patient Comments: Patient states that he takes one tablet in the morning and two tablets at night. trazodone 100 mg tablet 100 mg PO BEDTIME Patient Comments: not really taking due to bad dreams fluticasone propionate 50 mcg/actuation spray,suspension 2 spray INTRANASAL DAILY testosterone 20.25 mg/1.25 gram (1.62 %) gel in metered-dose pump 81 mg topical DAILY Patient Comments: Apply two pumps into each armpit daily. ranolazine 1,000 mg tablet extended release 12 hr 1,000 mg PO BID multivitamin Tablet 1 tab PO DAILY Patient Comments: with minerals. aspirin 81 mg tablet 81 mg PO DAILY tamsulosin 0.4 mg capsule 0.4 mg PO DAILY Patient Comments: Patient states that he takes one tablet in the morning and two tablets at night. mecobalamin (vitamin B12) 1,000 mcg tablet,chewable 1,000 mcg PO DAILY fluticasone propion-salmeterol 250-50 mcg/dose blister with device 1 inh inhalation BID Rx Instructions: Inhale one puff two times a day. loratadine 10 mg tablet 10 mg PO QDAY Discontinued lidocaine [Lidoderm] 5 % adhesive patch,medicated 1 patch topical DAILY PRN (Reason: pain) Rx Instructions: leave on most painful area for up to 12 hrs azelastine-fluticasone 137-50 mcg/spray spray,non-aerosol 1 spray intranasal DAILY Rx Instructions: administer into each nostril fluticasone propion-salmeterol [Advair Diskus] 100-50 mcg/dose blister with device 1 inh inhalation BID PRN (Reason: shortness of breath or wheezing) bumetanide 0.5 mg tablet 0.5 mg PO EVERY OTHER DAY Rx Instructions: Take one tablet by mouth every other day for 30 days. May take additional one tablet for swelling or weight gain. chlorhexidine gluconate [Hibiclens] 4 % liquid 1 applic topical BID Qty: 236 0RF Rx Instructions: as a single dose spironolactone 25 mg tablet 25 mg PO QAM ranolazine 500 mg tablet extended release 12 hr 1,000 mg PO BID isosorbide mononitrate 30 mg tablet extended release 24 hr 30 mg PO QDAY Did you review [place] [employer] for ALL controlled substances?: No Discussed opioids are addictive and Narcan is available by prescription or from pharmacy.: No Condition: Good Referrals: Brandt Tran [Other, PULMONOLOGY] - 06/01/25 11:00 am Referral Note: office is located across from [facility] pharmacy SANDY FLORES, [employer],REGISTRATION OFFICER [Primary Care Provider, UNKNOWN] - 03/28/25 11:00 am
[2025-03-22] MEDS: OMNIPAQUE 350 MG/ML 100ML IVP ONE (12:28)
--- NOTE | 2025-03-22 13:05 | CT ---
EXAM: CT ANGIOGRAPHY CHEST (PE PROTOCOL) HISTORY: Elevated D-dimer, shortness of breath TECHNIQUE: CTA chest with intravenous contrast. PE protocol. Multiplanar images were provided with MIP images and 3-D reconstructions. COMPARISON: 05/11/2024 FINDINGS: No pulmonary arterial thromboembolism. There is moderate atherosclerotic disease. The ascending thoracic aortic caliber is mildly aneurysmal at 3.7 cm. Coronary artery calcifications are present. Markedly enlarged heart size is again noted. No pericardial effusion. There is at least a small volume simple left pleural effusion. There is a moderate volume loculated right pleural effusion. Pulmonary vascular congestion is present. Subtle interstitial edema is suggested. Mild consolidations adjacent to the pleural effusions probably represent atelectasis, correlate clinically for less likely pneumonia. No pneumothorax. Bones reveal no acute finding. Prior sternotomy. - - - - - IMPRESSION: 1. No PE. 2. There is moderate atherosclerotic disease. The ascending thoracic aortic caliber is mildly aneurysmal at 3.7 cm. Coronary artery calcifications are present. 3. Markedly enlarged heart size is again noted. 4. There is at least a small volume simple left pleural effusion. There is a moderate volume loculated right pleural effusion. These effusions are new since the prior study. Mild consolidations adjacent to the pleural effusions probably represent atelectasis. 5. Pulmonary vascular congestion is present. Subtle interstitial edema. All CT scans are performed using dose optimization techniques as appropriate to the performed exam and include at least one of the following: Automated exposure control, adjustment of the mA and/or kV according to size, and the use of iterative reconstruction technique.
--- NOTE | 2025-03-22 15:45 | PCM.PROG ---
Date/Time Seen Date Seen by Provider: 03/22/25 Time Seen by Provider: 08:30 Provider Provider: ALIX WHITLOCK, [facility] Chief Complaint Chief Complaint: COPD, CHF Subjective Subjective: Feeling much better this am. Requesting to go home. Edema improved. Still having sob on exertion. Objective Appearance: Positive No Apparent Distress, Alert and Oriented x3 and Ill- Appearing Chest/Lungs: Positive Symmetrical With Equal Breath Sounds and Clear to Aus cultation Bilaterally (diminished) Heart: Positive Pulses Normal and Murmur GI/: Positive Soft, Nontender, Bowel Sounds Normal and No Distention Musculoskeletal: Positive Not Examined Neurological: Positive Sensation Intact, Motor intact, Reflexes Intact, Alert, Oriented and Other (generalized weakness) Additional Findings: trace edema to BLE and abdomen Vital Signs Vital Signs: Vital Signs: Last 24 Hours 03/21/25 18:00 03/21/25 19:00 03/21/25 19:00 Temperature 97.5 F L Temperature Source Oral Pulse Rate 85 Respiratory Rate 18 Blood Pressure 127/85 Blood Pressure Mean 99 Blood Pressure Location Left Arm Blood Pressure Position Supine O2 Sat by Pulse Oximetry 98 99 Oxygen Delivery Method Nasal Cannula Nasal Cannula Oxygen Flow Rate 3 3 Weight Telemetry Type Remote Telemetry Telemetry Monitoring Continues Telemetry Heart Rate 76 EKG NV Interval 0.20 EKG QRS Interval 0.15 H Telemetry Strip Reading SR W/ BBB Pulse Oximetry Type Remote Telemetry Pulse Oximetry Monitoring Started 03/21/25 20:00 03/21/25 20:00 03/21/25 20:56 Temperature 97.8 F Temperature Source Oral Pulse Rate 75 Respiratory Rate 16 18 Blood Pressure 151/80 H Blood Pressure Mean 103 Blood Pressure Location Left Arm Blood Pressure Position Supine O2 Sat by Pulse Oximetry 98 Oxygen Delivery Method Nasal Cannula Nasal Cannula Nasal Cannula Oxygen Flow Rate 3 3 3 Weight Telemetry Type Telemetry Monitoring Telemetry Heart Rate EKG NV Interval EKG QRS Interval Telemetry Strip Reading Pulse Oximetry Type Pulse Oximetry Monitoring 03/22/25 01:00 03/22/25 01:00 03/22/25 01:56 Temperature 97.3 F L Temperature Source Temporal Artery Scan Pulse Rate 79 Respiratory Rate 16 Blood Pressure 133/71 Blood Pressure Mean 91 Blood Pressure Location Left Arm Blood Pressure Position Supine O2 Sat by Pulse Oximetry 95 98 Oxygen Delivery Method Nasal Cannula Nasal Cannula Oxygen Flow Rate 3 3 Weight Telemetry Type Remote Telemetry Telemetry Monitoring Continues Telemetry Heart Rate 75 EKG NV Interval 0.18 EKG QRS Interval 0.16 H Telemetry Strip Reading SR/BBB Pulse Oximetry Type Remote Telemetry Pulse Oximetry Monitoring Continues 03/22/25 05:43 03/22/25 05:43 03/22/25 06:00 Temperature 97.7 F Temperature Source Temporal Artery Scan Pulse Rate 68 Respiratory Rate 18 Blood Pressure 102/59 L Blood Pressure Mean 73 Blood Pressure Location Left Arm Blood Pressure Position Supine O2 Sat by Pulse Oximetry 99 98 Oxygen Delivery Method Nasal Cannula Nasal Cannula Oxygen Flow Rate 3 3 Weight 73.9 kg Telemetry Type Telemetry Monitoring Telemetry Heart Rate EKG NV Interval EKG QRS Interval Telemetry Strip Reading Pulse Oximetry Type Pulse Oximetry Monitoring 03/22/25 07:00 03/22/25 07:00 03/22/25 07:53 Temperature Temperature Source Pulse Rate Respiratory Rate Blood Pressure Blood Pressure Mean Blood Pressure Location Blood Pressure Position O2 Sat by Pulse Oximetry 97 Oxygen Delivery Method Nasal Cannula Nasal Cannula Oxygen Flow Rate 3 3 Weight Telemetry Type Remote Telemetry Telemetry Monitoring Continues Telemetry Heart Rate 74 EKG NV Interval 0.16 EKG QRS Interval 0.14 H Telemetry Strip Reading SR with BBB Pulse Oximetry Type Remote Telemetry Pulse Oximetry Monitoring Continues 03/22/25 09:39 03/22/25 10:00 03/22/25 13:00 Temperature 97.7 F Temperature Source Oral Pulse Rate 72 Respiratory Rate 18 Blood Pressure 106/61 Blood Pressure Mean 76 Blood Pressure Location Left Arm Blood Pressure Position Supine O2 Sat by Pulse Oximetry 98 99 98 Oxygen Delivery Method Nasal Cannula Nasal Cannula Nasal Cannula Oxygen Flow Rate 3 3 3 Weight Telemetry Type Telemetry Monitoring Telemetry Heart Rate EKG NV Interval EKG QRS Interval Telemetry Strip Reading Pulse Oximetry Type Bedside Monitor Pulse Oximetry Monitoring Continues 03/22/25 13:00 03/22/25 14:00 03/22/25 14:00 Temperature 97.5 F L Temperature Source Temporal Artery Scan Pulse Rate 74 Respiratory Rate 18 Blood Pressure 103/69 Blood Pressure Mean 80 Blood Pressure Location Left Arm Blood Pressure Position Supine O2 Sat by Pulse Oximetry 99 Oxygen Delivery Method Nasal Cannula Nasal Cannula Oxygen Flow Rate 3 3 Weight Telemetry Type Remote Telemetry Telemetry Monitoring Continues Telemetry Heart Rate 74 EKG NV Interval 0.16 EKG QRS Interval 0.16 H Telemetry Strip Reading SR with BBB Pulse Oximetry Type Pulse Oximetry Monitoring Lab Results Lab Results: Lab Results: Last 24 Hours 03/22/25 05:11 WBC 2.96 L RBC 3.03 L Hgb 10.8 L Hct 33.3 L MCV 109.9 H MCH 35.6 H MCHC 32.4 RDW Coeff of Regino 15.9 H Plt Count 97 L Immature Gran % (Auto) 1.0 Neut % (Auto) 85.2 H Lymph % (Auto) 10.1 [place] % (Auto) 3.4 Eos % (Auto) 0.3 Baso % (Auto) 0.0 Neut # (Auto) 2.5 Lymph # (Auto) 0.3 L [place] # (Auto) 0.1 L Eos # (Auto) 0.0 Baso # (Auto) 0.0 Immature Gran # (Auto) 0.0 Sodium 131.5 L Potassium 3.56 Chloride 93.2 L Carbon Dioxide 29.7 Anion Gap 12.16 BUN 18.1 Creatinine 1.10 Estimated GFR (MDRD) 64.00 BUN/Creatinine Ratio 16.45 Glucose 145.2 H Calcium 8.28 L Total Bilirubin 1.22 AST 31.8 ALT 13.3 Alkaline Phosphatase 77.2 Total Protein 5.64 L Albumin 3.19 L Globulin 2.45 Albumin/Globulin Ratio 1.30 Additional Comments Additional Comments: I have independently reviewed and interpreted the labs/EKGs/imaging ordered during this hospital stay. I have reviewed outside records that are available in our EMR that pertain to medical stay including imaging/notes/labs from previous visits. Active Medications Active Medications: Medications Generic Name Dose Route Start Last Admin Trade Name Freq PRN Reason Stop Dose Admin Acetaminophen 650 mg 03/21/25 14:41 03/21/25 17:50 Acetaminophen 325 Mg Tablet PO 650 mg Q4H PRN Administration Mild Pain Albuterol Sulfate 2 puff 03/21/25 18:01 Albuterol Sulfate 8 Gm Inhaler IH Q4H PRN Wheezing Albuterol/Ipratropium 3 ml 03/21/25 14:44 Ipratropium/Albuterol Vial.Neb NEB RTQ4H PRN Wheezing Aspirin 81 mg 03/22/25 07:30 Aspirin 81 Mg Tab.Chew PO DAILYWM2 SINDY Atorvastatin Calcium 80 mg 03/21/25 21:00 03/21/25 20:30 Atorvastatin Calcium 20 Mg Tablet PO 80 mg BEDTIME SINDY Administration Budesonide/Formoterol Fumarate 2 puff 03/21/25 21:00 03/21/25 20:31 Budesonide/Formoterol Fumarate 160/4.5 Mcg Inhaler IH 2 puff BID SINDY Administration Cetirizine HCl 10 mg 03/22/25 09:00 Cetirizine Hcl 10 Mg Tablet PO DAILY SINDY Empagliflozin 10 mg 03/22/25 09:00 Empagliflozin 10 Mg Tablet PO DAILY COUNTS INCLUDE 234 BEDS AT [facility] Fluticasone Propionate 2 spray 03/22/25 09:00 Fluticasone Propionate 16 Gm Nasal [place] KATHY DAILY SINDY Folic Acid 1 mg 03/22/25 09:00 Folic Acid 1 Mg Tablet PO DAILY SINDY Furosemide 40 mg 03/21/25 21:00 03/22/25 05:32 Furosemide Inj 40 Mg/4 Ml Vial IVP 40 mg Q8HR SINDY Administration Melatonin 6 mg 03/21/25 19:56 03/21/25 20:31 Melatonin 3 Mg Tablet PO 6 mg BEDTIME PRN Administration Insomnia Memantine 10 mg 03/21/25 21:00 03/21/25 20:30 Memantine Hcl 10 Mg Tablet PO 10 mg BID SINDY Administration Metoprolol Succinate 12.5 mg 03/22/25 09:00 Metoprolol Succinate 25 Mg Tab.Er.24h PO DAILY COUNTS INCLUDE 234 BEDS AT [facility] Mirtazapine 7.5 mg 03/21/25 21:00 03/21/25 20:30 Mirtazapine 15 Mg Tablet PO 7.5 mg BEDTIME SINDY Administration Multivitamins 1 tab 03/22/25 09:00 Multivitamin 1 Tab PO DAILY SINDY Non-Formulary Medication 1,000 mcg 03/22/25 09:00 Mecobalamin (Vitamin B12) PO DAILY COUNTS INCLUDE 234 BEDS AT THE [facility] Non-Formulary Medication 81 mg 03/22/25 09:00 Testosterone TP DAILYWM2 SINDY Pantoprazole Sodium 40 mg 03/22/25 17:00 Pantoprazole Sodium 40 Mg Tablet.Dr PO BIDAC2 SINDY Ranolazine 1,000 mg 03/21/25 21:00 03/21/25 20:29 Ranolazine 500 Mg Tab.Er.12h PO 1,000 mg BID SINDY Administration Sacubitril/Valsartan 1 each 03/21/25 21:00 03/21/25 20:30 Sacubitril/Valsartan 1 Each Tablet PO 1 each BID SINDY Administration Sodium Chloride 1 syr 03/21/25 21:00 03/22/25 05:32 0.9% Sodium Chloride 10 Ml Disp.Syrin IVF 1 syr Q8HR SINDY Administration Tamsulosin HCl 0.8 mg 03/21/25 21:00 03/21/25 20:29 Tamsulosin Hcl 0.4 Mg Cap.Er.24h PO 0.8 mg BEDTIME SINDY Administration Tamsulosin HCl 0.4 mg 03/22/25 09:00 Tamsulosin Hcl 0.4 Mg Cap.Er.24h PO DAILY SINDY Thiamine HCl 100 mg 03/22/25 09:00 Vitamin B-1 100 Mg Tablet PO DAILY SINDY Trazodone HCl 100 mg 03/21/25 21:00 03/21/25 20:29 Trazodone Hcl 50 Mg Tablet PO 100 mg BEDTIME SINDY Administration Plan Plan: 1. 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 found to have loculated pleural effusion - discussed need for thoracentesis and patient refused transfer at this time, requesting to have procedure done outpatient if able, phone call out to his lurer Dr. Holland at [facility]. 2. Elevated D-dimer - CTA completed and negative for PE 3. Chronic Hyponatremia - likely due to alcohol abuse, restricting fluids, monitor 4. Afib - chronic, not in RVR, continue home medications 5. COPD - on home 3L, continue home medications 6. HTN - chronic, continue home medications 7. Leukopenia - mild, could be due to loculated effusion vs viral pneumonia, no fever or other symptoms DVT Prophylaxis: Eliquis Review Statement Review Statement: I have personally discussed and reviewed the patient's visit/currently labs/dominick ging/decision making with Dr. Ackerman, my supervising attending. Greater that 50 minutes spent with patient, 50% of the time spent with this patient was devoted to counseling and coordination of care.
[2025-03-22 19:56] VITALS: RESP 18
[2025-03-22] MEDS: LASIX IVP SCH (20:13)
[2025-03-23 05:14] VITALS: BP 140/75; PULSE 67; TEMP 97.6
[2025-03-23 06:21] LABS: IMMATURE GRANULOCYTE # (AUTO) 0.0 (0.0-1.0); IMMATURE GRANULOCYTE % (AUTO) 0.5 % (0.0-5.0); RDW COEFFICIENT OF VARIATION 16.1 % (11.6-14.8)
[2025-03-23 06:33] LABS: CREATININE 1.17 mg/dL (0.60-1.10)
[2025-03-23] MEDS: ASPIRIN CHEWABLE PO SCH (07:51)
[2025-03-23] MEDS: FLONASE NAS SCH (07:52)
[2025-03-23] MEDS: MECOBALAMIN 1000 MCG PO SCH (07:52)
[2025-03-23] MEDS: FLOMAX PO SCH (07:52)
[2025-03-23] MEDS: FOLIC ACID PO SCH (07:52)
[2025-03-23] MEDS: MULTIVITAMIN TABLET PO SCH (07:53)
[2025-03-23] MEDS: PROTONIX PO SCH (07:53)
[2025-03-23] MEDS: TOPROL XL PO SCH (07:54)
[2025-03-23] MEDS: ZYRTEC PO SCH (07:54)
[2025-03-23] MEDS: NON-FORMULARY MEDICATION (Testosterone 20.25 mg/1.25 gram (1.62 %) gel in metered-dose pum TP SCH (07:54)
[2025-03-23] MEDS: THIAMINE PO SCH (07:54)
[2025-03-23] MEDS: JARDIANCE PO SCH (07:55)
[2025-03-23] MEDS: K-DUR PO ONE (08:54)
== END 2025-03-23 09:25 | disposition home or self-care (01) | DRG 291 ==
LOC: ED 10:47 → MEDSURG B 10:47
PROVIDERS: ADMIT Hospitalist; ATTEND Nurse Practitioner Family
DX: E87.1 Hypo-osmolality and hyponatremia; J44.9 Chronic obstructive pulmonary disease, unspecified; I50.23 Acute on chronic systolic (congestive) heart failure; R79.89 Other specified abnormal findings of blood chemistry; I48.91 Unspecified atrial fibrillation; I11.0 Hypertensive heart disease with heart failure; I35.1 Nonrheumatic aortic (valve) insufficiency